=== PATIENT | male | born 1975 | race Caucasian/White ===

== ENCOUNTER 2017-11-17 15:20 | Emergency (ER) | payer OTHER ==
[2017-11-17 15:26] VITALS: RESP 17; TEMP 97.3
--- NOTE | 2017-11-17 15:43 | EDPHY ---
H & P Stated Complaint: r thumb lac cut on muffler/extensor tendon inj Time Seen by Provider: 11/17/17 15:42 HPI/ROS: HPI: This is a 42-year-old male who presents with Chief Complaint: r thumb lac cut on muffler/extensor tendon inj Location: Right thumb Quality: Laceration Duration: Prior to arrival Signs and Symptoms: + bleeding, no radiation, no numbness, no weakness, no tingling, no incontinence, no decreased range of motion, no swelling, + pain Timing: Acute Severity: Moderate to severe Context: Patient is right-hand dominant, was reattached the tailpipe to the muffler when he accidentally slipped and cut the dorsal surface of his right thumb between the joint spaces. He reports mild, constant, nonradiating pain at 1st and now only pain with movement. Denies any paresthesias/skin color changes. Reports tetanus up-to-date. He is traveling on Monday to [place] to run in the novathon. Modifying Factors: Direct pressure Comment: ROS: see HPI Constitutional: No fever, no chills, no weight loss Eyes: No blurred vision Respiratory: No shortness of breath, no cough Cardiovascular: No chest pain Gastrointestinal: No nausea, no vomiting no diarrhea Genitourinary: No dysuria Extremities: No myalgias Neurologic: No weakness, no numbness Skin: No rashes Hematologic: No bruising, no bleeding MEDICAL/SURGICAL/SOCIAL HISTORY: Medical history: Generally healthy. Does not take any regular medications. Surgical history: Denies Social history:. Employed. . CONSTITUTIONAL: Well-developed well-nourished adult white male, awake and alert , no obvious distress HEENT: Atraumatic and normocephalic. NECK: supple, no midline tenderness, flexion 45 degrees, extension 45 degrees, right and left lateral flexion 45 degrees. No meningismus. Cardiovascular: Normal S1/S2, regular rate, regular rhythm, without murmur rub or gallop. PULMONARY/CHEST: Symmetrical and nontender. no crepitus. Clear to auscultation bilaterally. Good air movement. No accessory muscle usage. ABDOMEN: Soft, nondistended, nontender, no ecchymosis. PELVIC: no pain with rocking; bilateral hips flexion 125 degrees, extension 30 degrees, with no pain internal rotation and no pain external rotation. BACK: No midline tenderness, no paraspinous spasm, deep tendon reflexes 2/2, no pain with straight leg raise EXTREMITIES: 2/2 pulses, strength 5/5, 2.5 cm horizontal deep simple laceration right thumb between the DIP and MCP joints, mild decrease in extension noted. Flexion intact with good light touch sensation. no deformities , no clubbing, no cyanosis or edema. NEUROLOGICAL: no focal neuro deficits. GCS 15. Light touch sensation intact. SKIN: Warm and dry, no erythema. no rash. Good capillary refill. Source: Patient Exam Limitations: No limitations - Personal History Current Tetanus/Diphtheria Vaccine: Yes - Medical/Surgical History Hx Asthma: No Hx Chronic Respiratory Disease: No Hx Diabetes: No Hx Cardiac Disease: No Hx Renal Disease: No Hx Cirrhosis: No Hx Alcoholism: No Hx HIV/AIDS: No Hx Splenectomy or Spleen Trauma: No Other PMH: denies - Social History Smoking Status: Never smoked Constitutional: Initial Vital Signs Temperature (C) 36.3 C 11/17/17 15:24 Heart Rate 55 L 11/17/17 15:24 Respiratory Rate 17 11/17/17 15:24 Blood Pressure 129/75 H 11/17/17 15:24 O2 Sat (%) 100 11/17/17 15:24 O2 Delivery Mode Room Air Allergies/Adverse Reactions: No Known Allergies Allergy (Unverified 11/17/17 15:23) Home Medications: Medication Instructions Recorded NK [No Known Home Meds] 11/17/17 Medical Decision Making Procedures: Procedure: Laceration repair. Verbal consent was obtained from the patient. The 2.5 cm, simple, deep laceration on the extensor surface of left thumb between PIP and MCP joint was anesthetized in the usual fashion using 4 mL of 0.5% bupivacaine. The wound was irrigated, draped and explored to its base with a gloved finger. There were no deep structures involved. No tendon injury was identified. The wound was repaired with #5, 5 0 Prolene. Good hemostasis was achieved and patient tolerated procedure well. Finger splint applied. The procedure was performed by myself. Procedure: Splint placement. A thumb finger splint was applied. After application of the splint I returned and re-examined the patient. The splint was adequately immobilizing the joint and distal to the splint the patient's circulation and sensation was intact. ED Course/Re-evaluation: Wound care and laceration repair Tetanus up-to-date Possibility for tendon injury due to decreased extension. Patient aware. Placed in finger splint and Hand surgery follow-up. No signs of neurovascular compromise/tenting of skin/compartment syndrome/ extremities and joints examined above and below area of concern and are neurovascularly intact. This patient was seen under the supervision of my secondary supervising physician. I evaluated care for this patient independently. Differential Diagnosis: Differential diagnosis includes but is not limited to finger fracture, tendon laceration, nerve injury. Departure - Departure Disposition: Home, Routine, Self-Care Clinical Impression: Laceration of thumb with tendon involvement Qualifiers: Encounter type: initial encounter Laterality: right Qualified Code(s): S61.011A - Laceration without foreign body of right thumb without damage to nail , initial encounter; S66.921A - Laceration of unspecified muscle, fascia and tendon at wrist and hand level, right hand, initial encounter; S66.921A - Laceration of unspecified muscle, fascia and tendon at wrist and hand level, right hand, initial encounter Condition: Good Instructions: Tendon Laceration (ED), Finger Laceration (ED) Additional Instructions: Keep the splint in place until sutures removed. Return to the emergency room to have your sutures removed in 7-10 days. Take Tylenol 650 mg every 4 hours and/or Ibuprofen 600 mg every 8 hours with food as needed for pain. Apply ice for 30 minutes at a time; 2-3 times per day for the next 1-2 days. Follow up with Orthopedics if you experience any decreased range of motion or concern for tendon injury. Referrals: Smith Dailey MD [Medical Doctor] - As per Instructions
[2017-11-17 16:34] VITALS: BP 125/98; PULSE 60; O2SAT 98
== END 2017-11-17 16:34 | disposition home or self-care (01) ==
PROC: 0HQGXZZ Repair Left Hand Skin, External Approach (ICD-10-PCS; principal; 2017-11-17)
DX: S61.011A Laceration without foreign body of right thumb without damage to nail, initial encounter (principal); S66.921A Laceration of unspecified muscle, fascia and tendon at wrist and hand level, right hand, initial encounter; W26.8XXA Contact with other sharp object(s), not elsewhere classified, initial encounter
CPT/HCPCS: L3925